=== PATIENT | female | born 1990 | race Caucasian/White ===

== ENCOUNTER 2018-12-22 13:15 | Emergency (ER) | payer OTHER ==
--- NOTE | 2018-12-22 15:03 | RADIOLOGY REPORT (SQ) ---
EXAM DESCRIPTION: U/S OB TRANSVAG W/DOPPLER COMPLETED DATE/TIME: 12/22/2018 2:45 pm REASON FOR STUDY: preg, RLQ pain, vaginal bleeding COMPARISON: None. TECHNIQUE: Endovaginal static and realtime grayscale images acquired of the pelvis. Additional selec rich spectral and color Doppler images recorded. All images stored on PACs. bHCG: Pending CLINICAL DATES: 10/29/2018 last menses LIMITATIONS: None. FINDINGS: In the lower uterine segment/cervix junction, adjacent facial sac containing a yolk sac an d embryo is present. Mean sac diameter generates an age of 5 weeks 5 days. There is no embryo cardi ac activity. This likely represents an AB in progress. Findings discussed with Dr. Gamez in the emergency room, 1450 hours 12/22/2018 ULTRASOUND CORNELIUS: 5 weeks 5 days PLACENTA: Not yet developed due to early gestation. SUBCHORIONIC BLEED: No SIZE OF BLEED: Not applicable. UTERUS: No masses. No anomalies. Uterus is 10 x 5 x 4 cm in size CERVICAL LENGTH: 2.5 cm, Closed. RIGHT ADNEXA: Normal ovary with normal vascular flow. Right ovary 2.3 by 2.9 cm in size. No adnexal free fluid. No adnexal masses. LEFT ADNEXA: Normal ovary with normal vascular flow. Left ovary 2.3 x 1.8 cm in size No adnexal free fluid. No adnexal masses. FREE FLUID: None. OTHER: No other significant finding. IMPRESSION: Gestational sac containing an embryo and yolk sac along the lower uterine segment/cervix . No embryo cardiac activity. Likely a spontaneous . Trimester of : First - 0 to 13 weeks. COMMENT: Pertinent findings on the imaging study reported as a CRITICAL RESULT to Vera LAW at14 :50 on 12/22/2018. Category of Critical Result: Embryo demise TECHNICAL DOCUMENTATION: JOB ID: [id number] [employer]- All Rights Reserved Reading location - IP/workstation name: [email or web address]
[2018-12-22 15:06] LABS: ABSOLUTE EOSINOPHILS # (AUTO) 0.1 10^3/uL (0.0-0.6); ABSOLUTE LYMPHOCYTES (AUTO) 1.6 10^3/uL (0.5-4.7); ABSOLUTE MONOCYTES (AUTO) 0.5 10^3/uL (0.1-1.4); ABSOLUTE NEUT (AUTO) 6.2 10^3/uL (1.7-8.2); BASOPHILS % (AUTO) 0.4 % (0-2); EOSINOPHILS % (AUTO) 0.9 % (0-6); HEMATOCRIT 36.8 % (36.0-47.0); HEMOGLOBIN 13.1 g/dL (12.0-15.5); LYMPHOCYTES % (AUTO) 19.4 % (13-45); MEAN CORPUSCULAR HEMOGLOBIN 30.5 pg (27.0-33.4); MEAN CORPUSCULAR HGB CONC 35.6 g/dL (32.0-36.0); MEAN CORPUSCULAR VOLUME 86 fl (80-97); MONOCYTES % (AUTO) 5.6 % (3-13); PLATELET COUNT 223 10^3/uL (150-450); RED CELL DISTRIBUTION WIDTH 12.5 % (11.5-14.0); SEGMENTED NEUTROPHILS % (AUTO) 73.7 % (42-78); TOTAL CELLS COUNTED % (AUTO) 100 %; WHITE BLOOD COUNT 8.3 10^3/uL (4.0-10.5)
[2018-12-22 15:13] LABS: APPEARANCE,URINE CLEAR; BILIRUBIN,URINE NEGATIVE (NEGATIVE); COLOR,URINE YELLOW; GLUCOSE, URINE NEGATIVE (NEGATIVE); KETONES,URINE NEGATIVE (NEGATIVE); LEUKOCYTE ESTERASE,URINE NEGATIVE (NEGATIVE); NITRITE,URINE NEGATIVE (NEGATIVE); PROTEIN,URINE NEGATIVE (NEGATIVE); UROBILINOGEN,URINE NEGATIVE mg/dL (<2.0)
[2018-12-22 15:28] LABS: ALANINE AMINOTRANSFERASE 25 U/L (9-52); ALBUMIN 4.5 g/dL (3.5-5.0); ALKALINE PHOSPHATASE 61 U/L (38-126); ANION GAP 5 (5-19); ASPARTATE AMINO TRANSFERASE 17 U/L (14-36); BILIRUBIN,DIRECT 0.1 mg/dL (0.0-0.4); BILIRUBIN,TOTAL 0.4 mg/dL (0.2-1.3); BLOOD UREA NITROGEN 9 mg/dL (7-20); CALCIUM 9.5 mg/dL (8.4-10.2); CARBON DIOXIDE 29 mmol/L (22-30); CHLORIDE 104 mmol/L (98-107); GLUCOSE 95 mg/dL (75-110); POTASSIUM 3.8 mmol/L (3.6-5.0); SODIUM 138.4 mmol/L (137-145); TOTAL PROTEIN 6.8 g/dL (6.3-8.2)
--- NOTE | 2018-12-22 15:37 | ER Document Report ---
ED General - General Chief Complaint: Vaginal Bleeding Stated Complaint: VAGINAL BLEEDING/SIDE PAIN Time Seen by Provider: 12/22/18 13:36 Notes: RME Provider note: 28-year-old female who presents to the emergency department today with complaints of sharp stabbing right-sided abdominal pain with heavy vaginal bleeding which began at 0300 this morning. Patient states that a few weeks ago she took a home test which was positive. Patient states she is not sure how far along she is. Patient is A1. Patient states her vaginal blee ding this morning was heavier than a normal period. Patient states that the bleeding has slowed down somewhat since 0300 this morning. My HPI: patient states she has gone through 3 total pads since bleeding started around 0300. Patient states she believes her last menstrual period was October 29, 2018.patient denies being lightheaded, dizzy, weak, short of breath. Past medical history: None Medications: None Allergies: Penicillin TRAVEL OUTSIDE OF THE [place] IN LAST 30 DAYS: No - Related Data Allergies/Adverse Reactions: Penicillins Allergy (Verified 12/22/18 13:18) Past Medical History - General Information source: Patient Last Menstrual Period: 10/29/2018 - Social History Smoking Status: Unknown if Ever Smoked Family History: Reviewed & Not Pertinent Patient has suicidal ideation: No Patient has homicidal ideation: No Renal/ Medical History: Denies: Hx Peritoneal Dialysis Past Surgical History: Reports: Hx Gynecologic Surgery - D&C Review of Systems - Review of Systems Constitutional: No symptoms reported EENT: No symptoms reported Cardiovascular: No symptoms reported Respiratory: No symptoms reported Gastrointestinal: See HPI Genitourinary: See HPI Female Genitourinary: See HPI Musculoskeletal: No symptoms reported Skin: No symptoms reported Hematologic/Lymphatic: No symptoms reported Neurological/Psychological: No symptoms reported Physical Exam - Vital signs Vitals: Temp Pulse Resp BP Pulse Ox 98.1 F 70 16 116/66 97 12/22/18 13:25 12/22/18 13:25 12/22/18 13:25 12/22/18 13:25 12/22/18 13:25 - Notes Notes: GENERAL: Alert, interacts well. No acute distress. Nontoxic, playing with her daughter in the room smiling HEAD: Normocephalic, atraumatic. EYES: Pupils equal, round, and reactive to light. Extraocular movements intact. ENT: Oral mucosa moist, tongue midline. NECK: Full range of motion. Supple. Trachea midline. LUNGS: Clear to auscultation bilaterally, no wheezes, rales, or rhonchi. No respiratory distress. HEART: Regular rate and rhythm. No murmur ABDOMEN: Soft, non-tender. No McBurney's point tenderness, no Yoon sign noted non-distended. Bowel sounds present in all 4 quadrants. Patient states upon palpation of bilateral pelvic region she feels a slight pressure but is denying any pain at this time. EXTREMITIES: Moves all 4 extremities spontaneously. No edema, normal radial and dorsalis pedis pulses bilaterally. No cyanosis. BACK: no cervical, thoracic, lumbar midline tenderness. No saddle anesthesia, normal distal neurovascular exam. NEUROLOGICAL: Alert and oriented x3. Normal speech. cranial nerves II through XII grossly intact PSYCH: Normal affect, normal mood. SKIN: Warm, dry, normal turgor. No rashes or lesions noted. Course - Re-evaluation Re-evalutation: 12/22/18 16:10 Patient's labs show no signs of leukocytosis, no signs of electrolyte abnormalities, no signs of anemia. Patient's beta-hCG is 1327. Patient's ultrasound shows an adjacent facial sac containing a yolk sac and embryo in the lower uterine segment/cervix junction. There is no embryo or cardiac activity seen. Likely a spontaneous Patient has normal vascular flow to bilateral ovaries. Discussed this case at length with the patient , Discussed bleeding precautions and need to follow-up with [facility] in the next 48 hours. Patient voices understanding. - Vital Signs Vital signs: Temp Pulse Resp BP Pulse Ox 98.1 F 70 16 116/66 97 12/22/18 13:25 12/22/18 13:25 12/22/18 13:25 12/22/18 13:25 12/22/18 13:25 - Laboratory Result Diagrams: 12/22/18 14:45 12/22/18 14:45 Laboratory results interpreted by me: 12/22/18 12/22/18 13:40 14:45 Beta HCG, Quant 1327.90 H Urine Blood MODERATE H Discharge - Discharge Clinical Impression: Spontaneous Condition: Stable Disposition: HOME, SELF-CARE Instructions: Miscarriage Impending ([facility]) Additional Instructions: As we discussed you have been seen and treated in the emergency department for vaginal bleeding. At this point in time your ultrasound shows no signs of cardiac activity and a yolk sac near the opening of your cervix. An is unfortunately inevitable. As we discussed you may have an increase in your vaginal bleeding. Please immediately return to the emergency room should you go through more than 1 pad an hour for 4 hours, are passing heavy clots, feel lightheaded, dizzy, weak, or have any other concerns. Please also follow-up with the [facility] phone number that is provided in this packet. Forms: Return to Work Referrals: JACKSON GARCIA MD [ACTIVE STAFF] - Follow up as needed
[2018-12-22 16:42] VITALS: BP 128/79
--- NOTE | 2018-12-22 18:16 | ER Document Report ---
Entered by CLIFF CROWDER SCRIBE 12/22/18 1415 Acting as scribe for:MICA DODD DO ED Medical Screen (RME) - General Chief Complaint: Vaginal Bleeding Stated Complaint: VAGINAL BLEEDING/SIDE PAIN Time Seen by Provider: 12/22/18 13:36 Notes: 28-year-old female who presents to the emergency department today with complaints of sharp stabbing right-sided abdominal pain with heavy vaginal bleeding which began at 0300 this morning. Patient states that a few weeks ago she took a home test which was positive. Patient states she is not sure how far along she is. Patient is A1. Patient states her vaginal bleeding this morning was heavier than a normal period. Patient states that the bleeding has slowed down somewhat since 0300 this morning. I have greeted and performed a rapid initial assessment of this patient. A comprehensive ED assessment and evaluation of the patient, analysis of test results, and completion of the medical decision making process will be conducted by additional ED providers. Review of systems: Constitutional: No symptoms reported EENT: No symptoms reported Cardiovascular: No symptoms reported Respiratory: No symptoms reported Gastrointestinal: Right-sided abdominal pain. Genitourinary: Positive test. Vaginal bleeding. Musculoskeletal: No symptoms reported Skin: No symptoms reported Hematologic/Lymphatic: No symptoms reported Neurological/Psychological: No symptoms reported Yes All other systems reviewed and negative PHYSICAL EXAM GENERAL: Alert, interacts well. No acute distress. HEAD: Normocephalic, atraumatic. EYES: Pupils equal, round, and reactive to light. Extraocular movements intact. ENT: Oral mucosa moist, tongue midline. NECK: Full range of motion. Supple. Trachea midline. LUNGS: No respiratory distress. EXTREMITIES: Moves all 4 extremities spontaneously. NEUROLOGICAL: Alert and oriented x3. Normal speech. PSYCH: Normal affect, normal mood. SKIN: Warm and dry. - Related Data Allergies/Adverse Reactions: Penicillins Allergy (Verified 12/22/18 13:18) Past Medical History - General Last Menstrual Period: 10/29/2018 Renal/ Medical History: Denies: Hx Peritoneal Dialysis Past Surgical History: Reports: Hx Gynecologic Surgery - D&C Physical Exam - Vital signs Vitals: Temp Pulse Resp BP Pulse Ox 98.1 F 70 16 116/66 97 12/22/18 13:25 12/22/18 13:25 12/22/18 13:25 12/22/18 13:25 12/22/18 13:25 Course - Vital Signs Vital signs: Temp Pulse Resp BP Pulse Ox 98.1 F 70 16 116/66 97 12/22/18 13:25 12/22/18 13:25 12/22/18 13:25 12/22/18 13:25 12/22/18 13:25 I personally performed the services described in the documentation, reviewed and edited the documentation which was dictated to the scribe in my presence, and it accurately records my words and actions.
== END 2018-12-22 16:42 | disposition home or self-care (01) ==
LOC: ER 13:15
DX: O03.9 Complete or unspecified spontaneous abortion without complication (principal); R10.9 Unspecified abdominal pain; Z88.0 Allergy status to penicillin
CPT/HCPCS: 36415; 76817; 80053; 81001; 84702; 85025; 86900; 86901; 93976; 99284